=== PATIENT | female | born 1975 | race Hispanic/Latino ===

== ENCOUNTER → 2017-01-12 | Outpatient (CLI) | payer OTHER ==
[~2017-01-12] MED LIST: IRON65TA PO; PROZ20CA11 PO; TOPI200T7 PO; VITA-115 PO
--- NOTE | 2017-01-12 15:00 | REPMRS ---
Digital Mammo Screening Bilat: January 12, 2017 - Exam #: [id number] Bilateral CC and MLO view(s) were taken. Technologist: Carissa Perry Technologist Prior study comparison: October 01, 2015, bilateral breast MRI, performed at [facility]. September 15, 2015, left breast diagnostic unilateral mammo, performed at [facility]. September 08, 2015, digital bilateral screening mammo, performed at [facility]. FINDINGS: There are scattered fibroglandular densities. There has been no change in the appearance of the mammogram from the prior studies. There is a mild amount of scattered fibroglandular density which is fairly symmetric. There is no interval development of dominant mass, architectural distortion, or clustered microcalcification suggestive of malignancy. ASSESSMENT: BI-RADS/ACR category 1 mammogram. Negative. Recommendation Routine screening mammogram in 1 year (for women over age 40). This mammogram was interpreted with the aid of an FDA-approved computer-aided dectection system. Electronically Signed By: Chip Keane MD 01/12/17 1500
== END ==
LOC: M RAD 14:21
PROVIDERS: ATTEND Family Medicine
DX: Z12.31 Encounter for screening mammogram for malignant neoplasm of breast (principal)

== ENCOUNTER 2017-03-06 05:50 | Emergency (ER) | payer OTHER ==
[~2017-03-06] VITALS: Ht 165.1 cm; Wt 86.0 kg
[2017-03-06] MEDS ORDERED: PROZ20CA11 PO (06:03)
[2017-03-06] MEDS ORDERED: IRON65TA PO (06:03)
[2017-03-06] MEDS ORDERED: TOPI200T7 PO (06:03)
[2017-03-06] MEDS ORDERED: VITA-115 PO (06:03)
[2017-03-06] MEDS ORDERED: NS 1,000 ML IV ONE (06:30)
[2017-03-06] MEDS ORDERED: GASTROGRAFIN SOLUTION 30ML PO ONE (07:10)
[2017-03-06 07:27] LABS: BASO % 0.3 % (0.0-1.0); EOS # 0.1 10^3/uL (0.0-0.50); EOS % 1.3 % (0.0-3.0); IMMATURE GRANULOCYTE % 0.4 % (0-0); LYMPH # 1.6 10^3/uL (1.5-4.5); LYMPH % 22.9 % (24.0-44.0); MEAN CORPUSCULAR HEMOGLOBIN 29.8 pg (27.0-33.0); MEAN CORPUSCULAR HGB CONC 33.5 g/dl (32.0-36.5); MONO # 0.3 10^3/uL (0.0-0.8); MONO % 4.1 % (0.0-5.0); NEUTROPHILS # 5.1 10^3/uL (1.8-7.7); PLATELET COUNT, AUTOMATED 244 10^3/uL (150-450); RED CELL DISTRIBUTION WIDTH 13.9 % (11.5-14.5); WHITE BLOOD COUNT 7.1 10^3/uL (4.0-10.0)
[2017-03-06] MEDS ORDERED: GASTROGRAFIN SOLUTION 30ML (Q9963) PO ONE (07:40)
[2017-03-06] MEDS ORDERED: ONDANSETRON 4MG/2ML VIAL (J2405) IV ONE (07:45)
[2017-03-06] MEDS ORDERED: MORPHINE 4 MG/ML 1ML SYRINGE IV ONE (07:45)
[2017-03-06] MEDS ORDERED: diphenhydrAMINE INJ 50MG/ML VIAL (J1200) IV ONE (07:45)
[2017-03-06 08:09] LABS: ALBUMIN 3.3 GM/DL (3.2-5.2); ALBUMIN/GLOBULIN RATIO 1.06 (1.00-1.93); ALKALINE PHOSPHATASE 49 U/L (45-117); ALT/SGPT 16 U/L (12-78); ANION GAP 11 MEQ/L (8-16); AST/SGOT 8 U/L (15-37); BILIRUBIN,DIRECT 0.1 MG/DL (0.0-0.2); BILIRUBIN,TOTAL 0.2 MG/DL (0.2-1.0); BLOOD UREA NITROGEN 16 MG/DL (7-18); CALCIUM LEVEL 8.3 MG/DL (8.5-10.1); CARBON DIOXIDE LEVEL 21 MEQ/L (21-32); CHLORIDE LEVEL 110 MEQ/L (98-107); CREATININE FOR GFR 0.53 MG/DL (0.55-1.02); GLOMERULAR FILTRATION RATE > 60.0 (>58); GLUCOSE, FASTING 93 MG/DL (70-105); POTASSIUM SERUM 3.9 MEQ/L (3.5-5.1); SODIUM LEVEL 142 MEQ/L (136-145); TOTAL PROTEIN 6.4 GM/DL (6.4-8.2)
[2017-03-06] MEDS ORDERED: ISOVUE-370 76% 100ML VIAL (Q9967) As Ordered ONE (08:54)
--- NOTE | 2017-03-06 09:50 | REP ---
CT ABDOMEN AND PELVIS WITH IV CONTRAST: TECHNIQUE: Axial contrast enhanced images from the lung bases to the pubic symphysis using 100 mL Isovue 370 intravenous contrast material with multiplanar reformations. Visualized lung bases demonstrate some minor fibroatelectatic changes bilaterally. The liver and gallbladder are grossly unremarkable. Spleen and right adrenal are unremarkable. Left adrenal demonstrates a nodule probably representing an adenoma meauring about 1.3 cm in diameter. Pancreas appears unremarkable. Kidneys appear unremarkable. There is no hydronephrosis. There is no abdominal aortic aneurysm. There is no adenopathy. There is no evidence of free air or free fluid. There is no evidence of bowel wall thickening. I do not see evidence of an inflamed appendix. The uterus is enlarged with a length of approximately 15 cm. There appears to be an anterior fibroid present measuring approximately 4 cm in diameter. An IUD is present in the lower uterine segment of the uterus. There is no other evidence of pelvic mass. Urinary bladder appears unremarkable. IMPRESSION: No evidence of acute appendicitis or colitis. No free air or free fluid. Enlarged uterus with 4 cm anterior fibroid. IUD is present in the lower uterine segment. Left adrenal nodule 1.3 cm in diameter is most consistent with an adenoma. Signed by Mark Torres MD 03/07/2017 04:22 P
[2017-03-06 10:03] VITALS: BP 122/64
== END 2017-03-06 10:06 | disposition home or self-care (01) ==
LOC: M ED 05:50
DX: N85.8 Other specified noninflammatory disorders of uterus (principal); D64.9 Anemia, unspecified; Z97.5 Presence of (intrauterine) contraceptive device
CPT/HCPCS: 74177; 80048; 80076; 81001; 81025; 83690; 85025; 96361; 96374; 96375; 99284; J1200; J2405; Q9963; Q9967